=== PATIENT | male | born 1995 | race Hispanic/Latino ===

== ENCOUNTER 2019-10-10 20:11 | Emergency (ER) | payer BC, OTHER ==
[2019-10-10] MEDS ORDERED: KETOROLAC TROMETHAMINE 60 MG/2 ML VIAL ONE (20:47)
== END 2019-10-10 23:09 | disposition home or self-care (01) ==
LOC: EDH 20:11
DX: S93.492A Sprain of other ligament of left ankle, initial encounter (principal); X58.XXXA Exposure to other specified factors, initial encounter; Y93.89 Activity, other specified; Y92.89 Other specified places as the place of occurrence of the external cause; Y99.8 Other external cause status; Z72.0 Tobacco use
CPT/HCPCS: 73610; 73630; 96372; 99284; J1885

== ENCOUNTER 2022-05-15 13:38 | Emergency (ER) | payer OTHER ==
[~2022-05-15] VITALS: Ht 182.9 cm; Wt 164.2 kg
[2022-05-15 17:14] VITALS: BP 128/76
== END 2022-05-15 17:26 | disposition home or self-care (01) ==
LOC: EDH 13:38
DX: J02.9 Acute pharyngitis, unspecified (principal); R73.03 Prediabetes; Z20.822 Contact with and (suspected) exposure to COVID-19
CPT/HCPCS: 99283; 87635; 87420; 87804 ×2; C9803